=== PATIENT | male | born 1995 | race Caucasian/White ===

== ENCOUNTER 2017-04-19 20:08 | Emergency (ER) | payer OTHER ==
[~2017-04-19] VITALS: Ht 185.4 cm; Wt 106.6 kg
--- NOTE | ~2017-04-19 | CR142 ---
[facility]. [facility] A Service of [facility] & [facility] RADIOLOGY TEXT RESULTS PATIENT: WILBERT LAROSE LOCATION: SED : [birth year] UNIT #: [id number] AGE: [address]: Erendira Hutchison SEX: M ORDER DR: [id number] [address] [address] [id number] E MR#: [id number] Acc #: [id number] NAME: WILBERT LAROSE : 1995 SEX: M STUDY DATE/TIME: 04/19/2017 20:54 UNIT: SED ROOM: STUDY DESCRIPTION: CR Hand Min 3 Views Rt Attending Physician: Erendira Hutchison Pa-C Ordering Physician: Erendira Hutchison Pa-C Primary Care Physician: No Primary Care Physician MEDICAL IMAGING REPORT This report is preliminary unless electronic signature is present. EXAM Right hand HISTORY Trauma to the hand 2 hours ago at work. Pain predominately at the thumb. TECHNIQUE 3 views of the right hand were obtained. FINDINGS AP, lateral, and oblique projections of the hand show good mineralization with normal carpal, metacarpal, and phalangeal anatomy without indication of fracture, dislocation, or soft tissue radiopaque foreign body. IMPRESSION Normal hand. Dictated by... Rodolfo Toth M.D. THIS IS AN ELECTRONICALLY VERIFIED REPORT Rodolfo Toth M.D. at 04/21/2017 7:08 AM RLRachel/rosie TD: 04/20/2017 08:56 JOB #: [id number] MEDICAL IMAGING REPORT Page 1 of 1
[~2017-04-19 20:08] MED LIST: ALBUTEROL HFA INH; AMOXICILLIN500 M1 PO; FLEXERIL10 MG PO; HYDROCORTISONE TOP; HYDROMET PO; MAGIC MOUTHWASH PO; MOTRIN PO; NAPROSYN500 MG PO; NO MEDICATIONS; PREDNISONE PO; VOLTAREN75 MG PO; ZITHROMAX PO
== END 2017-04-19 21:27 | disposition home or self-care (01) ==
LOC: SED 20:08
DX: S63.601A Unspecified sprain of right thumb, initial encounter (principal); W22.8XXA Striking against or struck by other objects, initial encounter; Y92.69 Other specified industrial and construction area as the place of occurrence of the external cause; Y99.0 Civilian activity done for income or pay
CPT/HCPCS: 29130; 73130; 99283